=== PATIENT | female | born 1980 ===

== ENCOUNTER 2017-09-17 12:11 | Emergency (ER) | payer OTHER ==
[2017-09-17] MEDS ORDERED: Sodium Chloride 0.9% 1,000 ML IV ONE (12:45)
[2017-09-17] MEDS ORDERED: Sodium Chloride 0.9% 1,000 ML ONE (13:15)
--- NOTE | 2017-09-17 13:21 | RAD ---
PROCEDURE: CHEST RADIOGRAPH, 1 VIEW HISTORY: Chest pain COMPARISON: None available. FINDINGS: LUNGS: Clear. PLEURA: No pneumothorax or pleural fluid seen. CARDIOVASCULAR: Normal. OSSEOUS STRUCTURES: Subtle levoscoliosis mid to lower thoracic spine versus mild side bending of the upper torso VISUALIZED UPPER ABDOMEN: Normal. OTHER FINDINGS: None. IMPRESSION: No active disease.
[2017-09-17 13:39] LABS: BASO % 0.6 % (0.0-2.0); EOS # 0.1 K/uL (0.0-0.7); EOS % 1.1 % (0.0-4.0); HEMOGLOBIN 14.1 g/dL (11.0-16.0); MEAN CELL VOLUME 83.2 fL (81.0-99.0); MEAN CORPUSCULAR HEMOGLOBIN 28.3 pg (27.0-31.0); MONO # 0.4 K/uL (0.0-0.8); MONO % 6.1 % (0.0-10.0); NEUT # 3.9 K/uL (1.8-7.0); NEUT % 61.2 % (50.0-75.0); NRBC % 0.1 % (0.0-2.0); RED CELL DISTRIBUTION WIDTH 13.6 % (11.5-14.5); WHITE BLOOD COUNT 6.4 K/uL (4.8-10.8)
[2017-09-17 13:44] LABS: HCG,QUALITATIVE URINE NEGATIVE (NEGATIVE)
[2017-09-17 13:48] LABS: SQUAMOUS EPITHIAL 7 /hpf (0-5); URINE BACTERIA OCC (<OCC); URINE BILIRUBIN NEGATIVE (NEGATIVE); URINE BLOOD NEGATIVE (NEGATIVE); URINE CLARITY Clear (Clear); URINE COLOR Red (YELLOW); URINE GLUCOSE (UA) NORMAL (Normal); URINE LEUKOCYTE ESTERASE NEG Leu/uL (Negative); URINE PROTEIN NEGATIVE (NEGATIVE); URINE UROBILINOGEN NORMAL mg/dL (0.2-1.0)
[2017-09-17 13:52] LABS: BLOOD UREA NITROGEN 8 mg/dL (7-17); CALCIUM 9.2 mg/dl (8.6-10.4); GFR AFRICAN-AMERICAN > 60; GFR NON-AFRICAN AMERICAN > 60
--- NOTE | 2017-09-17 13:54 | C.PDOC ---
History Of Present Illness 45 yo female w/o significant PMHx BIBA for evaluation of dizziness, mild frontal headache gradually developed since today AM associated with retrosternal discomfort since today AM. Pt sts, " woke this AM was fine, went to bathroom, gradually developed lightheadedness, nausea". Pt also reports (+) mild ight sensitivity. Otherwise, pt denies recent illness, fever, chills, severe headache, vertigo, visual changes, focal deficits, blurry vision, neck pain, drooling, dysphagia, dyspnea, palpitation, diaphoresis, abd. pain, V/D, back pain, UTI sx. At yonis time of evaluation, appears in painful discomfort. Time Seen by Provider: 09/17/17 12:34 Chief Complaint (Nursing): Chest Pain History Per: Patient Past Medical History Reviewed: Historical Data, Nursing Documentation, Vital Signs Vital Signs: Last Vital Signs Temp 98.0 F 09/17/17 12:18 Pulse 72 09/17/17 12:18 Resp 18 09/17/17 12:18 BP 117/81 09/17/17 12:18 Pulse Ox 95 09/17/17 15:42 - Medical History PMH: No Chronic Diseases Surgical History: Family History: States: No Known Family Hx - Social History Hx Tobacco Use: No Hx Alcohol Use: No Hx Substance Use: No - Immunization History Hx Tetanus Toxoid Vaccination: No Hx Influenza Vaccination: No Hx Pneumococcal Vaccination: No Review Of Systems Except As Marked, All Systems Reviewed And Found Negative. Constitutional: Negative for: Fever, Chills Eyes: Negative for: Vision Change ENT: Negative for: Ear Discharge, Nose Discharge, Throat Pain, Throat Swelling Cardiovascular: Positive for: Chest Pain. Negative for: Palpitations, Orthopnea , Edema, Light Headedness Respiratory: Negative for: Cough, Shortness of Breath, Wheezing Gastrointestinal: Positive for: Nausea. Negative for: Vomiting, Abdominal Pain , Diarrhea Genitourinary: Negative for: Dysuria, Frequency Musculoskeletal: Negative for: Neck Pain, Back Pain Neurological: Positive for: Headache, Dizziness. Negative for: Weakness, Numbness, Altered Mental Status Physical Exam - Physical Exam Appears: Well, Non-toxic, No Acute Distress Skin: Normal Color, Warm, Dry, No Rash Head: Normacephalic Eye(s): bilateral: PERRL Ear(s): Bilateral: Normal Nose: No Discharge Oral Mucosa: Moist, No Drooling Throat: No Erythema, No Drooling Neck: Trachea Midline, Supple Cardiovascular: Rhythm Regular, No Murmur, No JVD, Other ((-) carotid bruits B/L ) Respiratory: No Decreased Breath Sounds, No Accessory Muscle Use, No Stridor, No Wheezing Gastrointestinal/Abdominal: Soft, No Tenderness, No Distention, No Guarding Back: No CVA Tenderness Extremity: Normal ROM, No Pedal Edema, No Capillary Refill, No Deformity Neurological/Psych: Oriented x3, Normal Speech ED Course And Treatment - Laboratory Results Result Diagrams: 09/17/17 13:28 09/17/17 13:28 Lab Interpretation: No Acute Changes Urine POC: Negative ECG: Interpreted By Me, Viewed By Me ECG Rhythm: Sinus Rhythm Interpretation Of ECG: SR@71/min, NAD, T wave inversion in III, no acute ST-T changes. O2 Sat by Pulse Oximetry: 95 Pulse Ox Interpretation: Normal - Radiology CXR: Interpreted by Me, Viewed By Me, Read By Radiologist CXR Interpretation: Yes: No Acute Disease. No: Cardiomegaly - CT Scan/US CT head w/contrast Other Rad Studies (CT/US): Radiology Report Reviewed CT/US Interpretation: PROCEDURE: CT HEAD WITHOUT CONTRAST. HISTORY: Dizziness and headache. COMPARISON: None available. TECHNIQUE: Axial computed tomography images were obtained through the head/brain without intravenous contrast. Radiation dose: Total exam DLP = 820.06 MGy-cm. This CT exam was performed using one or more of the following dose reduction techniques: Automated exposure control, adjustment of the mA and/or kV according to patient size, and/or use of iterative reconstruction technique. FINDINGS: HEMORRHAGE: No intracranial hemorrhage. BRAIN: Freeman-white matter differentiation is preserved. There is no mass, mass effect or abnormal extra- axial fluid collection. VENTRICLES: The ventricles are normal in size, shape and configuration. CALVARIUM: The skull base and calvarium are normal. PARANASAL SINUSES: Predominantly clear. MASTOID AIR CELLS: Predominantly clear. OTHER FINDINGS: None. IMPRESSION: No acute intracranial abnormality. Progress Note: Pt was OBS in ED for 3 hours and reports moderate improvement in symptoms. On re-evaluation, pt is afebrile, hemodynamicaly stable. Asymptomatic now. NOn-toxic. Ambulatory in ED with stable gait. ENT: no acute findings. neck: Supple, (-) JVD, (-) carotid bruits B/L. Lungs: CTA B/L, BS equal B/L. CVS: (+)S1S2, reg. Abd: benign, (-) guarding, (-) rebound, (-) localized tenderness. Neurologicaly intact. Blood work review and appears normal. Troponin, D-Dimer- negative. CT head: no acute findings. EKG, CXR- normal study. Pt has clinical findings c/w dizziness, chest discomfort, headache resolved. Pt advised and ref. to f/u with PMD, Neuro in 1-2 days for re-eavl. return to ED at any time if any worsening or new changes. Disposition Counseled Patient/Family Regarding: Studies Performed, Diagnosis, Need For Followup, Rx Given - Disposition Referrals: [facility] [Outside] Rebel Jones MD [Staff Provider] - Disposition: HOME/ ROUTINE Disposition Time: 15:18 Condition: STABLE Additional Instructions: Encourage fluids Avoid strenuous activity Follow up with PMD, Neurology in 1-2 days for re-evaluation. return to ED at any time if any worsening or new changes. Prescriptions: Meclizine [Antivert] 12.5 mg PO BID #7 tab Instructions: Dizziness, Nonvertigo, (DC) Forms: [employer] (Vietnamese) Print Language: LAO - Clinical Impression Clinical Impression: Dizziness
--- NOTE | 2017-09-17 15:21 | CT ---
PROCEDURE: CT HEAD WITHOUT CONTRAST. HISTORY: Dizziness and headache COMPARISON: None available. TECHNIQUE: Axial computed tomography images were obtained through the head/brain without intravenous contrast. Radiation dose: Total exam DLP = 820.06 MGy-cm. This CT exam was performed using one or more of the following dose reduction techniques: Automated exposure control, adjustment of the mA and/or kV according to patient size, and/or use of iterative reconstruction technique. FINDINGS: HEMORRHAGE: No intracranial hemorrhage. BRAIN: Freeman-white matter differentiation is preserved. There is no mass, mass effect or abnormal extra-axial fluid collection. VENTRICLES: The ventricles are normal in size, shape and configuration. CALVARIUM: The skull base and calvarium are normal. PARANASAL SINUSES: Predominantly clear. MASTOID AIR CELLS: Predominantly clear. OTHER FINDINGS: None. IMPRESSION: No acute intracranial abnormality.
[2017-09-17 16:09] VITALS: BP 115/85; PULSE 78; RESP 16; TEMP 97.8; O2SAT 99
== END 2017-09-17 16:08 | disposition home or self-care (01) ==
LOC: C.ER 12:11
DX: R42 Dizziness and giddiness (principal)
CPT/HCPCS: 70450; 71045; 80048; 81001; 84484; 84703; 85025; 85378; 99283; J7040